=== PATIENT | female | born 2000 | race Caucasian/White ===

== ENCOUNTER 2018-03-21 05:56 | Emergency (ER) | payer BC ==
[2018-03-21 06:04] VITALS: Ht 162.6 cm
[2018-03-21 06:54] LABS: BASOPHIL % 0.2 % (0-2); PLATELET COUNT 336 x10^3mcL (130-400); RED CELL DISTRIBUTION WIDTH 12.8 % (11.5-14.5)
[2018-03-21 06:59] LABS: microscopic required? YES; urine erythrocyte NEGATIVE (NEGATIVE)
[2018-03-21 07:12] LABS: CARBON DIOXIDE 24.4 mmol/L (21-32); CHLORIDE SERUM 101 mmol/L (98-107); CREATININE SERUM 0.7 mg/dL (0.6-1.0); GFR1 > 60 mL/min; GLUCOSE SERUM 106 mg/dL (74-106); SODIUM SERUM 136 mmol/L (136-145)
[2018-03-21 07:16] LABS: ALKALINE PHOSPHATASE 90 U/L (46-116); ALT/SGPT 37 U/L (14-59); AST/SGOT 29 U/L (15-37); TOTAL PROTEIN, SERUM 8.1 g/dL (6.4-8.2)
[2018-03-21 07:45] LABS: AMPHETAMINE QUAL UR POSITIVE (See below)
[2018-03-21 11:43] VITALS: BP 120/82
== END 2018-03-21 11:43 | disposition left against medical advice (07) ==
LOC: ED 05:56
PROVIDERS: Emergency Medicine
DX: R51 Headache (principal); R11.10 Vomiting, unspecified
CPT/HCPCS: G0480; J2270; J2765